=== PATIENT | male | born 1985 | race Caucasian/White ===

== ENCOUNTER 2017-01-30 13:54 | Emergency (ER) | payer SELFPAY ==
[~2017-01-30] VITALS: Ht 190.5 cm; Wt 115.9 kg
[~2017-01-30 13:54] MED LIST: ANTIVERT 25MG25 MG PO; ATIVAN 0.50.5 MG/TAB PO; ATIVAN 1MG T1 MG/TAB PO; BACTRIM DS 8001 TAB PO; CEPHALEXIN500 M1 PO; MEDROL 4MG DOSPA4 MG PO; NO HOME MEDICATIONS; NORCO 325 MG-51 TAB PO; NORCO 325 MG-7.1 TAB PO; PREDNISONE10 MG PO; PREDNISONE20 MG PO; VALIUM5 MG PO; ZOFRAN 4MG T4 MG/TAB PO
[2017-01-30 13:55] VITALS: TEMP 97.7
[2017-01-30 14:39] VITALS: BP 136/83; PULSE 70
[2017-01-30] MEDS ORDERED: VALIUM 2MG T2 MG/TAB PO (15:08)
== END 2017-01-30 16:35 | disposition home or self-care (01) ==
LOC: COL.ER 13:54
DX: F41.9 Anxiety disorder, unspecified (principal); I10 Essential (primary) hypertension; Z94.5 Skin transplant status

== ENCOUNTER 2018-06-10 12:04 | Emergency (ER) | payer SELFPAY ==
[~2018-06-10] VITALS: Ht 190.5 cm; Wt 122.7 kg
[~2018-06-10 12:04] MED LIST changes: +VALIUM 2MG T2 MG/TAB PO
[2018-06-10 12:14] VITALS: BP 140/87
[2018-06-10] MEDS ORDERED: IPRATROPIUM BROM3 M1 IH (13:48)
[2018-06-10] MEDS ORDERED: NEB MC (13:48)
[2018-06-10] MEDS ORDERED: OMNICEF 300MG300 MG PO (13:48)
[2018-06-10 14:14] VITALS: PULSE 115; TEMP 99.3
== END 2018-06-10 14:35 | disposition home or self-care (01) ==
LOC: COL.ER 12:04
DX: J18.9 Pneumonia, unspecified organism (principal); Z87.891 Personal history of nicotine dependence
CPT/HCPCS: J0696

== ENCOUNTER 2021-10-29 18:35 | Emergency (ER) | payer SELFPAY ==
[~2021-10-29] VITALS: Ht 190.5 cm; Wt 145.5 kg
[~2021-10-29 18:35] MED LIST changes: +IPRATROPIUM BROM3 M1 IH; +NEB MC; +OMNICEF 300MG300 MG PO
[2021-10-29 18:50] VITALS: TEMP 97.7
[2021-10-29 19:02] LABS: COLLECTION METHOD CLEAN CATCH
[2021-10-29 19:15] LABS: BASO # 0.1 K/mm3 (0.0-0.2); BASO % 0.8 % (0.0-2.0); EOS # 0.2 K/mm3 (0.0-0.7); EOS % 1.2 % (0.0-4.0); GRAN # 10.3 K/mm3 (1.4-6.5); HEMATOCRIT 49.8 % (42.0-52.0); HEMOGLOBIN 16.9 g/dl (13.5-18.0); LYMPH # 1.1 K/mm3 (1.2-3.4); MEAN CELL VOLUME 91 fl (80.0-100.0); MEAN CORPUSCULAR HEMOGLOBIN 31 pg (27-31); MEAN CORPUSCULAR HGB CONC 34 g/dl (33.0-37.0); MEAN PLATELET VOLUME 9.2 fl (7.4-10.4); MONO # 0.8 K/mm3 (0.1-0.6); MONO % 6.5 % (1.7-9.3); PLATELET COUNT 300 K/mm3 (130-400); RED BLOOD COUNT 5.49 M/mm3 (4.20-5.60); REDCELL DISTRIBUTION WIDTH-CV 13.4 % (11.5-14.5)
[2021-10-29 19:18] LABS: BUDDING YEAST Present (NOT PRESENT); MUCOUS Present (NOT PRESENT); PH 5 (5-8); SQUAMOUS EPITHELIAL None Seen /hpf (0-10); URINE APPEARANCE Cloudy (CLEAR/HAZY); URINE BACTERIA None Seen /hpf (NONE SEEN); URINE BILIRUBIN Negative (NEGATIVE); URINE BLOOD 3+ (NEGATIVE); URINE COLOR Amber (YELLOW); URINE GLUCOSE Negative (NEGATIVE); URINE KETONE Negative (NEGATIVE); URINE LEUKOCYTE ESTERASE Negative (NEGATIVE); URINE NITRATE Negative (NEGATIVE); URINE PROTEIN(semi-quant) 2+ (NEGATIVE); URINE RBC >50 /hpf (0-2)
[2021-10-29 19:32] LABS: ALBUMIN 4.6 gm/dL (3.5-5.0); BILIRUBIN,TOTAL 0.8 mg/dL (0.2-1.2); C-REACTIVE PROTEIN 0.69 mg/dL (0.00-0.50); CALCIUM 9.4 mg/dL (8.4-10.2); CREATININE, serum 1.02 mg/dL (0.72-1.25); TOTAL PROTEIN 8.7 gm/dL (6.2-8.1)
[2021-10-29] MEDS ORDERED: NORCO 325 MG-51 TAB PO (21:10)
[2021-10-29] MEDS ORDERED: ZOFRAN ODT4 MG PO (21:10)
[2021-10-29 21:21] VITALS: PULSE 91
[2021-10-29 21:28] VITALS: BP 143/90
== END 2021-10-29 21:30 | disposition home or self-care (01) ==
LOC: COL.ER 18:35
PROVIDERS: Emergency Medicine; Physician Assistant
DX: N20.2 Calculus of kidney with calculus of ureter (principal); E87.5 Hyperkalemia; I10 Essential (primary) hypertension; Z87.891 Personal history of nicotine dependence
CPT/HCPCS: J1885; J2405; J7030; Q9967

== ENCOUNTER 2021-11-04 05:39 | Emergency (ER) | payer SELFPAY ==
[~2021-11-04] VITALS: Ht 190.5 cm; Wt 150.0 kg
[~2021-11-04 05:39] MED LIST changes: +ZOFRAN ODT4 MG PO
[2021-11-04 05:46] VITALS: TEMP 97.9
[2021-11-04 06:16] LABS: BASO # 0.1 K/mm3 (0.0-0.2); EOS # 0.3 K/mm3 (0.0-0.7); EOS % 3.2 % (0.0-4.0); GRAN # 6.9 K/mm3 (1.4-6.5); GRAN % 70.6 % (42.2-75.2); HEMATOCRIT 48.7 % (42.0-52.0); HEMOGLOBIN 16.5 g/dl (13.5-18.0); LYMPH # 1.4 K/mm3 (1.2-3.4); LYMPH % 14.5 % (20.0-51.0); MEAN CELL VOLUME 90 fl (80.0-100.0); MEAN CORPUSCULAR HEMOGLOBIN 31 pg (27-31); MEAN CORPUSCULAR HGB CONC 34 g/dl (33.0-37.0); MONO % 9.9 % (1.7-9.3); PLATELET COUNT 304 K/mm3 (130-400); REDCELL DISTRIBUTION WIDTH-CV 13.4 % (11.5-14.5)
[2021-11-04 06:20] LABS: COLLECTION METHOD CLEAN CATCH
[2021-11-04 06:41] LABS: ALBUMIN 4.4 gm/dL (3.5-5.0); BILIRUBIN,TOTAL 0.6 mg/dL (0.2-1.2); CALCIUM 9.2 mg/dL (8.4-10.2); CREATININE, serum 1.07 mg/dL (0.72-1.25); POTASSIUM 4.2 mmol/L (3.5-4.5)
[2021-11-04] MEDS ORDERED: ZOFRAN ODT4 MG PO (07:00)
[2021-11-04] MEDS ORDERED: NORCO 325 MG-51 TAB PO (07:00)
[2021-11-04 07:20] LABS: MUCOUS Present (NOT PRESENT); PH 5 (5-8); SQUAMOUS EPITHELIAL 0-2 /hpf (0-10); URINE APPEARANCE Cloudy (CLEAR/HAZY); URINE BACTERIA Rare /hpf (NONE SEEN); URINE BILIRUBIN Negative (NEGATIVE); URINE BLOOD 3+ (NEGATIVE); URINE CALCIUM OXALATE CRYSTAL Present (NOT PRESENT); URINE COLOR Yellow (YELLOW); URINE GLUCOSE Negative (NEGATIVE); URINE KETONE Negative (NEGATIVE); URINE LEUKOCYTE ESTERASE Negative (NEGATIVE); URINE NITRATE Negative (NEGATIVE); URINE PROTEIN(semi-quant) 2+ (NEGATIVE); URINE RBC >50 /hpf (0-2); URINE UROBILINOGEN Negative (NEGATIVE)
[2021-11-04 07:45] VITALS: BP 131/93; PULSE 94
== END 2021-11-04 07:45 | disposition home or self-care (01) ==
LOC: COL.ER 05:39
PROVIDERS: Emergency Medicine
DX: N20.0 Calculus of kidney (principal); R03.0 Elevated blood-pressure reading, without diagnosis of hypertension
CPT/HCPCS: J1885; J2765; J7120

== ENCOUNTER 2021-11-04 21:46 | Emergency (ER) | payer SELFPAY ==
[~2021-11-04] VITALS: Ht 190.5 cm; Wt 150.0 kg
[2021-11-04 21:51] VITALS: TEMP 98
[2021-11-04 22:17] LABS: COLLECTION METHOD CLEAN CATCH
[2021-11-04 22:21] LABS: BASO # 0.1 K/mm3 (0.0-0.2); BASO % 0.6 % (0.0-2.0); EOS # 0.2 K/mm3 (0.0-0.7); EOS % 1.4 % (0.0-4.0); GRAN # 11.1 K/mm3 (1.4-6.5); GRAN % 80.4 % (42.2-75.2); HEMATOCRIT 47.2 % (42.0-52.0); LYMPH # 1.2 K/mm3 (1.2-3.4); LYMPH % 8.7 % (20.0-51.0); MEAN CELL VOLUME 90 fl (80.0-100.0); MEAN CORPUSCULAR HEMOGLOBIN 31 pg (27-31); MEAN CORPUSCULAR HGB CONC 34 g/dl (33.0-37.0); MEAN PLATELET VOLUME 8.9 fl (7.4-10.4); MONO # 1.2 K/mm3 (0.1-0.6); MONO % 8.5 % (1.7-9.3); PLATELET COUNT 284 K/mm3 (130-400); RED BLOOD COUNT 5.22 M/mm3 (4.20-5.60); REDCELL DISTRIBUTION WIDTH-CV 13.2 % (11.5-14.5)
[2021-11-04 22:33] LABS: MUCOUS Present (NOT PRESENT); PH 5 (5-8); SQUAMOUS EPITHELIAL 0-2 /hpf (0-10); URINE APPEARANCE Hazy (CLEAR/HAZY); URINE BACTERIA None Seen /hpf (NONE SEEN); URINE BILIRUBIN Negative (NEGATIVE); URINE BLOOD 3+ (NEGATIVE); URINE COLOR Yellow (YELLOW); URINE GLUCOSE Negative (NEGATIVE); URINE KETONE Negative (NEGATIVE); URINE LEUKOCYTE ESTERASE Negative (NEGATIVE); URINE NITRATE Negative (NEGATIVE); URINE PROTEIN(semi-quant) 2+ (NEGATIVE); URINE RBC 20-50 /hpf (0-2); URINE UROBILINOGEN Negative (NEGATIVE)
[2021-11-04 22:42] LABS: ALBUMIN 4.4 gm/dL (3.5-5.0); CALCIUM 9.1 mg/dL (8.4-10.2); CREATININE, serum 1.26 mg/dL (0.72-1.25); POTASSIUM 3.7 mmol/L (3.5-4.5); TOTAL PROTEIN 7.9 gm/dL (6.2-8.1)
[2021-11-05 01:10] VITALS: BP 158/78; PULSE 80
== END 2021-11-05 01:10 | disposition home or self-care (01) ==
LOC: COL.ER 21:46
PROVIDERS: Emergency Medicine
DX: N20.0 Calculus of kidney (principal); I10 Essential (primary) hypertension; D72.829 Elevated white blood cell count, unspecified; R94.4 Abnormal results of kidney function studies
CPT/HCPCS: J1885; J2405; J7120

== ENCOUNTER 2023-12-05 08:18 | Emergency (ER) | payer SELFPAY ==
[~2023-12-05] VITALS: Ht 190.5 cm; Wt 172.7 kg
[~2023-12-05 08:18] MED LIST changes: +TESSALON PERLE200 MG PO
[2023-12-05 08:22] VITALS: BP 145/100; PULSE 92; TEMP 97.6
[2023-12-05] MEDS ORDERED: Acetaminophen 500 MG TAB PO ONE (09:00)
[2023-12-05] MEDS ORDERED: NS 1,000 ML IV ONE (09:00)
[2023-12-05] MEDS ORDERED: Albuterol/Ipratropium 3 MG-0.5 MG/3 ML Neb Soln IH ONE (09:00)
[2023-12-05 09:37] LABS: BASO # 0.1 K/mm3 (0.0-0.2); BASO % 0.9 % (0.0-2.0); EOS # 0.3 K/mm3 (0.0-0.7); EOS % 3.8 % (0.0-4.0); GRAN # 5.2 K/mm3 (1.4-6.5); GRAN % 67.7 % (42.2-75.2); HEMATOCRIT 48.3 % (42.0-52.0); HEMOGLOBIN 15.6 g/dl (13.5-18.0); LYMPH # 1.4 K/mm3 (1.2-3.4); LYMPH % 17.5 % (20.0-51.0); MEAN CELL VOLUME 94 fl (80.0-100.0); MEAN CORPUSCULAR HEMOGLOBIN 30 pg (27-31); MEAN CORPUSCULAR HGB CONC 32 g/dl (33.0-37.0); MEAN PLATELET VOLUME 9.2 fl (7.4-10.4); MONO # 0.8 K/mm3 (0.1-0.6); MONO % 9.7 % (1.7-9.3); PLATELET COUNT 249 K/mm3 (130-400); RED BLOOD COUNT 5.13 M/mm3 (4.20-5.60); REDCELL DISTRIBUTION WIDTH-CV 13.7 % (11.5-14.5)
[2023-12-05 09:54] LABS: ALBUMIN 3.8 g/dL (3.5-5.0); BILIRUBIN,TOTAL 0.5 mg/dL (0.2-1.2); C-REACTIVE PROTEIN 0.9 mg/dL (0.00-0.50); CALCIUM 9.3 mg/dL (8.4-10.2); CREATININE, serum 0.86 mg/dL (0.72-1.25); TOTAL PROTEIN 7.5 g/dl (6.2-8.1)
[2023-12-05] MEDS ORDERED: PREDNISONE50 MG PO (10:32)
[2023-12-05] MEDS ORDERED: DOXYCYCLINE 10100 MG PO (10:32)
== END 2023-12-05 11:33 | disposition home or self-care (01) ==
LOC: COL.ER 08:18
PROVIDERS: Emergency Medicine
DX: J40 Bronchitis, not specified as acute or chronic (principal); Z87.891 Personal history of nicotine dependence
CPT/HCPCS: J7030

== ENCOUNTER 2024-05-12 13:32 | Emergency (ER) | payer SELFPAY ==
[~2024-05-12] VITALS: Ht 190.5 cm; Wt 159.1 kg
[~2024-05-12 13:32] MED LIST changes: +DOXYCYCLINE 10100 MG PO; +PREDNISONE50 MG PO
[2024-05-12 13:37] VITALS: TEMP 97.8
[2024-05-12] MEDS ORDERED: Albuterol/Ipratropium 3 MG-0.5 MG/3 ML Neb Soln IH SCH (14:30)
[2024-05-12] MEDS ORDERED: NS 1,000 ML IV ONE (14:30)
[2024-05-12 15:05] LABS: BASO # 0.1 K/mm3 (0.0-0.2); BASO % 0.9 % (0.0-2.0); EOS # 0.3 K/mm3 (0.0-0.7); EOS % 2.8 % (0.0-4.0); GRAN # 7.8 K/mm3 (1.4-6.5); GRAN % 74.3 % (42.2-75.2); HEMATOCRIT 47.4 % (42.0-52.0); HEMOGLOBIN 16.1 g/dl (13.5-18.0); LYMPH # 1.3 K/mm3 (1.2-3.4); LYMPH % 12.4 % (20.0-51.0); MEAN CELL VOLUME 91 fl (80.0-100.0); MEAN CORPUSCULAR HEMOGLOBIN 31 pg (27-31); MEAN CORPUSCULAR HGB CONC 34 g/dl (33.0-37.0); MEAN PLATELET VOLUME 9.2 fl (7.4-10.4); MONO % 9.2 % (1.7-9.3); PLATELET COUNT 271 K/mm3 (130-400); REDCELL DISTRIBUTION WIDTH-CV 13.5 % (11.5-14.5)
[2024-05-12 15:24] LABS: INR 1.1 (0.8-3.0); PROTHROMBIN TIME 11.4 SECONDS (9.7-12.8)
[2024-05-12 15:28] LABS: BILIRUBIN,TOTAL 0.5 mg/dL (0.2-1.2); C-REACTIVE PROTEIN 1.07 mg/dL (0.00-0.50); CALCIUM 9.5 mg/dL (8.4-10.2); CREATININE, serum 0.85 mg/dL (0.72-1.25); POTASSIUM 4.1 mEq/L (3.5-4.5); TOTAL PROTEIN 7.6 g/dl (6.2-8.1)
[2024-05-12 15:34] LABS: TROPONIN-I 0.026 ng/mL (0.00-0.033)
[2024-05-12] MEDS ORDERED: predniSONE 20 MG TAB PO ONE (15:45)
[2024-05-12] MEDS ORDERED: Azithromycin 250 MG TAB PO ONE (15:45)
[2024-05-12] MEDS ORDERED: Amoxicillin/Clavulanate K+ 875/125 MG TAB PO ONE (15:45)
[2024-05-12] MEDS ORDERED: Benzonatate 100 MG CAP PO ONE (15:45)
[2024-05-12] MEDS ORDERED: Albuterol 90 MCG/PUFF 8 GM MDI IH ONE (17:00)
[2024-05-12 17:20] LABS: COLLECTION METHOD CLEAN CATCH
[2024-05-12 17:24] LABS: URINE APPEARANCE CLEAR (CLEAR/HAZY); URINE BLOOD NEGATIVE (NEGATIVE); URINE COLOR YELLOW (YELLOW); URINE GLUCOSE NEGATIVE (NEGATIVE); URINE KETONE NEGATIVE (NEGATIVE); URINE NITRATE NEGATIVE (NEGATIVE); URINE PROTEIN(semi-quant) NEGATIVE (NEGATIVE)
[2024-05-12] MEDS ORDERED: PROAIR HFA0.09 MG/AC IH (17:29)
[2024-05-12] MEDS ORDERED: PREDNISONE50 MG PO (17:29)
[2024-05-12] MEDS ORDERED: TESSALON P100 MG/CAP PO (17:29)
[2024-05-12] MEDS ORDERED: ZITHROMAX Z PA250 MG PO (17:29)
[2024-05-12] MEDS ORDERED: NORVASC 10MG10 MG PO (17:29)
[2024-05-12] MEDS ORDERED: AMOXICILLIN 8751 TAB PO (17:29)
[2024-05-12 18:11] VITALS: BP 155/105; PULSE 94
== END 2024-05-12 18:11 | disposition home or self-care (01) ==
LOC: COL.ER 13:32
PROVIDERS: Emergency Medicine
DX: J18.9 Pneumonia, unspecified organism (principal); I10 Essential (primary) hypertension; Z87.891 Personal history of nicotine dependence; Z20.822 Contact with and (suspected) exposure to COVID-19
CPT/HCPCS: J7030; J7512